=== PATIENT | male | born 1970 | race Caucasian/White ===

== ENCOUNTER 2016-10-14 19:31 | Emergency (ER) | payer BC ==
[~2016-10-14] VITALS: Ht 193 cm; Wt 88.6 kg
[~2016-10-14 19:31] MED LIST: ASPIR 8181 M1 PO; FLOMAX0.4 MG PO; LIPITOR40 MG PO; NITROGLYCERIN0.4 MG SL; OXYCODONE HCL5 MG PO; ZOFRAN ODT8 MG PO
[2016-10-14] MEDS ORDERED: MOTRIN800 MG PO (20:57)
[2016-10-14 21:36] VITALS: BP 112/63
== END 2016-10-14 21:38 | disposition home or self-care (01) ==
LOC: RME 19:31 → EME 19:31 → RME 21:38
DX: S99.912A Unspecified injury of left ankle, initial encounter (principal); X50.0XXA Overexertion from strenuous movement or load, initial encounter; Y93.67 Activity, basketball; F17.200 Nicotine dependence, unspecified, uncomplicated
CPT/HCPCS: 73610; 99281; 99284